=== PATIENT | female | born 1965 | race Caucasian/White ===

== ENCOUNTER 2024-06-03 13:01 | Outpatient (AMB) | payer MEDICAID, SELFPAY ==
[2024-06-03 13:10] VITALS: BP 126/72; PULSE 85; RESP 16; TEMP 36.8; O2SAT 98; BMI 40.6
--- NOTE | 2024-06-03 13:10 | GYNCLNT_ITS ---
Vital Signs 06/03/24 13:10 Height 1.22 m Height Method Stated Weight 60.384 kg Weight Measurement Method Standing Scale BMI 40.6 BP 126/72 Blood Pressure Source Automatic Cuff Blood Pressure Location Left Upper Arm Position Sitting Respiration 16 Pulse 85 Pulse Source Monitor Temp 98.2 F Temp Source Oral Pulse Oximetry (%) 98 Oxygen Delivery Method Room Air Allergies/Home Meds Allergies & Medications Allergies NKA* Allergy (Uncoded 06/03/24 13:11) Medication Reconciliation No Known Home Medications 06/03/24 [History Confirmed 06/03/24] Intake Visit Data Collection New Patient or Established: Established Patient (seen at [facility] within 3 years) Reason for Visit:: Referral to discuss abnormal Paps and for Pap smear Seen by Clinical Staff ONLY (RN/MA): No Supervisor Sawmill Required: Yes Supervisor Sawmill's name/title: STEFFI TOPETE/ MEDICAL ASSITANT Do You Feel Safe at Home: Yes Authorities Contacted: N/A PCP or OBGYN visit in last 3 months: No Hx Now: No Are you currently on any form of Control: No Pain Present Currently: No Pain Scale Used: Rodriguez-Felipe/Numerical Pain scale:: 0 Smoking Status Smoking Status: Never smoker 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 1. Little interest or pleasure in doing things: not at all 2. Feeling down, depressed, or hopeless: not at all Total score: 0 PHQ-9 3. Trouble falling or staying asleep, or sleeping too much: Not at all 4. Feeling tired or having little energy: Not at all 5. Poor appetite or overeating: Not at all 6. Feeling bad about yourself - or that you are a failure or have let yourself or your family down: Not at all 7. Trouble concentrating on things, such as reading the newspaper or watching television: Not at all 8. Moving or speaking so slowly that other people could have noticed? - Or the opposite - being so fidgety or restless that you have been moving around a lot more than usual: not at all 9. Thoughts that you would be better off or of hurting yourself in some way: Not at all Total score: 0 If you checked off any problems, how difficult have these problems made it for you to do your work, take care of things at home, or get along with other people?: not difficult at all Source: Developed by Drs. Jag Muñoz, Alysha Shelley, Jagdish Quinn and colleagues, with an educational lanre from [employer]. Depression screen completed yes Social History Living Situation History Marital Status: Lives With: Family Housing: House Housing Other:: Has 5 children Tobacco History Smoking Status: Never smoker Alcohol History Alcohol Intake: Never Domestic Abuse History Do You Feel Safe at Home: Yes Past Medical History Past Medical History Have you ever been diagnosed with any of the following: Neurological Problems Seizures: No Migraine: No Cardiology Problems Cardiac Arrhythmia: No Heart Murmur: No Hypercholesterolemia: No Deep Vein Thrombosis: No Hypertension: Yes Respiratory Problems Asthma: No Tuberculosis: No Sleep Apnea: No Stomache/Intestinal Problems Celiac Disease: No Gall Bladder Disease: No Diverticulosis: No Colorectal Cancer: No Genital/Urinary Problems Renal Disease: No Kidney Stones: No Reproductive Problems Breast Cancer: No Endometriosis: No Fibroids: No Genital Herpes: No Gonorrhea: No Pelvic Inflammatory Disease: No Polycystic Ovarian Syndrome: No Previous Pregnancies: Yes (History of vaginal delivery x 5 in the past) Syphilis: No Uterine Prolapse: No Musculoskeletal Problems Arthritis: No Rheumatoid Arthritis: No Fibromyalgia: No Head,Eye,Nose,Throat Problems Glaucoma: No Endocrine Problems Diabetes Mellitus Type 2: No Hyperthyroidism: No Hypothyroidism: No Systemic Lupus Erythematosus: No Blood Problems Anemia: No Psychologic Problems Depression: Yes Anxiety: Yes Other Problems Hospitalization: Yes (For childbirth) Autoimmune Disease: No History of Present Illness HPI Narrative Patient is a 59-year-old -1-0-5 presents as a new patient to our clinic. She is a referral from a provider at [facility] for an abnormal Pap. Some results are available. Patient had a Pap 01/08/2022 revealing a normal Pap with positive HPV negative for 16 and 18 she then had a repeat Pap in revealing a normal Pap with positive HPV but negative HPV 16 and 18.According to the referral, she wanted a female provider and was sent here for a Pap smear. She only speaks Japanese and her visit is through an healthcare interpreter. Patient states her primary care gave her an order for a mammogram that she needs to complete. Review of Systems Review of Systems Narrative Review of Systems: Patient is menopausal she denies any abnormal discharge, dysuria, pelvic pain ,vaginal dryness ,hot flashes ,night sweats or dyspaunia. No postmenopausal vaginal bleeding. She is just concerned about her abnormal Pap smears. Systems Reviewed: All systems reviewed, normal except as documented Exam General Limitations: no limitations General Appearance: alert, in no apparent distress, cooperative, healthy appearing and well groomed Chest Chest inspection: Present normal inspection and symmetric chest wall rise Abdominal Abdominal exam: Present soft and normal bowel sounds External exam: Present normal external exam Speculum exam: Present normal speculum exam Bimanual exam: Present normal bimanual exam Extremities Extremities exam: Present normal inspection and full ROM Psych Psychiatric exam: Present normal affect and normal mood Skin Skin exam: Present warm, dry, intact and normal color Assessment & Plan Diagnosis / Problem List (1) 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 If patient is positive for HPV and her Pap is normal she needs another screening test in 1 year. (3) Screening for HPV (human papillomavirus): Status: Acute Additional Plan Follow Up: 1 Year Office Procedures OB Clinic LOC & Office Proc's Nursing/Assessment Patient Status: Established Patient OB Clinic Nursing Assessment: BP Monitoring, Medication Reconciliation, Update PMH in EMR and Vital Signs OB Clinic Coordination of Care: Consent,records obtained, informed consent, Education Simp Pt/Fam, Lab and Imaging orders and Staff clarify orders Miscellaneous Interventions: Pelvic/Pap Smear Set up Established Patient Charge Established Patient Point Assignment: 110 Established Patient Point Charge: EP Level 3 (80-115) In Clinic Procedures Pap Smear: Yes AEROSOL LINE OPERATOR: Papsmear Pap Smear Procedure Chaparone in room during procedure?: Yes Pre-op diagnosis general: Annual Pap smear, history of HPV positive Post-op diagnosis procedure note: Same Procedure Notes:: Pap with cotesting to HPV and reflex typing to 16 and 18 was performed Papsmear completed: yes
== END 2024-06-03 13:35 | disposition home or self-care (01) ==
LOC: HODSOBC 13:01
PROVIDERS: PCP Nurse Practitioner Family; Referring Provider Nurse Practitioner Family; Supervising Provider Obstetrics & Gynecology; Visit Provider Obstetrics & Gynecology
DX: Z01.42 Encounter for cervical smear to confirm findings of recent normal smear following initial abnormal smear (principal)
CPT/HCPCS: 99213; Q0091; G0463

== ENCOUNTER → 2025-01-11 | Outpatient (CLI) | payer MEDICAID, SELFPAY ==
--- NOTE | 2025-01-11 10:00 | XR_ITS ---
Examination: Screening digital mammography, bilateral Computer aided detection 3-D breast Tomosynthesis, bilateral Date and time of exam: 02/10/2025, 10:00 a.m. Comparisons: 05/03/2022 Indications: Screening Technique: Nonmagnified MLO, CC views of the breasts to been obtained, reconstructed from 3-D Tomosynthesis images. R2 computer aided detection program utilized for evaluation of suspicious masses and/or abnormal calcifications. 3-D Tomosynthesis images obtained. Technologist: Findings: There are scattered areas of fibroglandular density. No evidence of abnormal masses or suspicious calcifications. Impression: BI-RADS category 1: Negative findings (within normal) Recommend 1 year follow-up mammogram
== END | disposition home or self-care (01) ==
DX: Z12.31 Encounter for screening mammogram for malignant neoplasm of breast (principal); R92.313 Mammographic fatty tissue density, bilateral breasts
CPT/HCPCS: 77063; 77067